=== PATIENT | male | born 2005 | race Hispanic/Latino ===

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

== ENCOUNTER 2023-11-27 15:36 | Emergency (ER) | payer SELFPAY ==
[2023-11-27] MEDS ORDERED: Ibuprofen 800 MG TAB ONE (17:39)
== END 2023-11-27 17:45 | disposition home or self-care (01) ==
LOC: ERS 15:36
DX: S46.912A Strain of unspecified muscle, fascia and tendon at shoulder and upper arm level, left arm, initial encounter (principal); S40.022A Contusion of left upper arm, initial encounter; G62.9 Polyneuropathy, unspecified; F17.290 Nicotine dependence, other tobacco product, uncomplicated; X58.XXXA Exposure to other specified factors, initial encounter
CPT/HCPCS: 99283